=== PATIENT | male | born 1980 | race Hispanic/Latino ===

== ENCOUNTER 2016-08-22 19:42 | Emergency (ER) | payer OTHER ==
[~2016-08-22] VITALS: Ht 157.5 cm; Wt 113.5 kg
[2016-08-22 20:01] VITALS: BP 151/92; PULSE 85; RESP 15; O2SAT 98
--- NOTE | 2016-08-22 21:56 | ED.REPORT ---
HPI-General Illness Date of Service Aug 22, 2016 ED Provider: Merrill SavageO. A 36 year old male with a history of hypothyroid, hyperlipidemia, and diabetes type 2 presents to the ED with intermittent anxiety attacks onset more than six months ago, worsening today. Associated symptoms include blurred vision, shaking , clamminess, inability to concentrate, chest pain, bilateral flank pain, and hypertension (170 systolic). The patient denies hyperglycemia, suicidal ideation , homicidal ideation, or other symptoms. He has been seen and worked-up by his PCP and a thyroid specialist for these symptoms, with no relief. The patient was placed on alprazolam as needed at the beginning of his month and this medication has since ceased to provide relief. His dose of citalopram was increased two months ago. Nursing Notes Stated Complaint: ANXIETY,HIGH BLOOD PRESSURE,CHEST PAIN Chief Complaint: General Complaint Nursing Notes Reviewed: Yes Allergies: Coded Allergies: No Known Allergies (Unverified , 08/22/16) Scheduled PRN Lorazepam (Ativan) 1 Mg Tablet 1 MG PO BID PRN PRN For Anxiety General Time Seen by MD: 21:55 Chief Complaint Other (Anxiety Attacks) Hx Obtained From: Patient Arrived By: Walk-in Sudden in Onset?: Yes Onset Occurred: More than a week ago... (>6 months, worsening) Symptom Duration: Intermittent Location: : Back (Bilateral Flank): Chest Quality: Painful Severity: Current: Moderate Severity: Maximum: Moderate Pertinent Negative: Relieved by nothing Recent Healthcare: Recent doctor visit Similar Sx Previous: Yes Past Medical History Past Medical History Diabetes type 2 Hypothyroid Hyperlipidemia Elevated liver enzymes Past Surgical History None reported Smoking History Unknown if Ever Smoker Social History Formerly drank 750mL a day, but has reduced alcohol intake as of 08/22/16 Other Social History: Good social support Ambulatory Status Independent Review of Systems + Clamminess, inability to concentrate, hypertension (170 systolic) - Hyperglycemia Full Review of Systems Constitutional: Denies: Fever Respiratory: Denies: Non-productive cough, Shortness of breath Cardiovascular: Reports: Chest pain GI: Denies: Diarrhea, Vomiting Male: Reports Flank pain (Bilateral) Neurologic: Reports: Shaking, Vision change (Blurred vision) Psychiatric: Reports: Anxiety, Denies: Homicidal ideation, Suicidal ideation Complete sys rev & neg: except as marked. Physical Exam Vital Signs Vital Signs Date Time Temp Pulse Resp B/P Pulse Ox O2 Delivery O2 Flow Rate FiO2 08/22/16 23:04 76 173/86 99 Room Air 08/22/16 20:01 36.1 85 15 151/92 98 Room Air Initial VS: Reviewed Head / Eyes: Atraumatic, Normocephalic ENT: Conjunctiva normal, No scleral icterus Neck: Supple, Full range of motion Respiratory: Breath sounds normal, Clear to auscultation, No respiratory distress Cardiovascular: Regular rate & rhythm, Heart sounds normal Abdomen / GI: Soft, Non-tender Skin: Warm, Dry, No cyanosis General/Constitutional: Awake, Alert Neurologic: Oriented X3, Speech NL, No motor deficits, No sensory deficits, Reflexes equal bilat No ocular clonus No inducible clonus No cogwheel rigidity Psychiatric: Affect NL, Not suicidal, Not homicidal Abnormal Mood/Affect: Positive: Anxious Re-Eval/Medical Decision Med Decision/Clinical Course Prior clinic records were reviewed. No evidence today of serotonin syndrome or other obvious life-threatening pathology. Will give a dose of Ativan now and prescribe Ativan 1mg when necessary, 5 tablets given. Return and follow-up precautions given Time of Eval: 22:25 Patient Status: Condition improved Re-Evaluation/Progress Note: Discussed with patient diagnosis and plan for discharge. Follow-up and return to the ER instructions given. Patient agrees with plan for care and all questions were addressed. Counseled Regarding: Diagnosis, Need for follow-up, When/why to return to ED Discharge & Departure Primary Impression: Restlessness Disposition: Home Discharge Condition All VS Reviewed: Yes Condition: Improved Additional Instructions: Thank you for entrusting us with your care. Your exam today was reassuring for any serious illness at this time. Please take 1mg Ativan twice daily. Call your primary care provider tomorrow for a follow-up appointment this week. Return to the ER with any new or worsening symptoms. Referrals: Marino Maldonado DO (PCP) Manuel Bunn Attestation Portions of this note were transcribed by Viv Cutler. I, Dr. Jessica, personally performed the history, physical exam, and medical decision-making; I reviewed and confirmed the accuracy of the information in the transcribed note. Signed by: Jessica Singer, 08/22/2016, 23:15 copies to: Marino Maldonado DO; Manuel Bunn Timothy S DO Aug 22, 2016 21:56 VIV CUTLER Aug 22, 2016 22:14
[2016-08-22] MEDS ORDERED: LORazepam 2 mg Tablet PO ONE (22:20)
[2016-08-22] MEDS ORDERED: LORA-303 PO (22:30)
[2016-08-22 23:04] VITALS: BP 173/86; PULSE 76; O2SAT 99
== END 2016-08-22 23:06 | disposition home or self-care (01) ==
LOC: SED 19:42
DX: R45.1 Restlessness and agitation (principal); E11.9 Type 2 diabetes mellitus without complications; E78.5 Hyperlipidemia, unspecified

== ENCOUNTER 2016-08-23 23:40 | Observation (INO) | payer OTHER ==
[~2016-08-23] VITALS: Ht 165.1 cm; Wt 101.3 kg
[~2016-08-23 23:40] MED LIST: LORA-303 PO
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
[2016-08-23] MEDS ORDERED: 0.9% Sodium Chloride 1,000 ML IV ONE (23:58)
[2016-08-24] VITALS (9 sets, daily range): BP systolic 106–139; BP diastolic 61–83; PULSE 70–95; RESP 16–20; O2SAT 92–100
[2016-08-24 00:07] LABS: Mean Corpuscular Hemoglobin 28.5 pg (27.0-35.0); Mean Corpuscular Volume 84.4 fL (81-100)
[2016-08-24 00:08] LABS: BASOPHILS % (AUTO) 0.3 % (0-3); EOSINOPHILS % (AUTO) 0.6 % (0-5); MONOCYTES % (AUTO) 6.7 % (4-12); NEUTROPHILS % (AUTO) 67.5 % (40-74); Platelet Count 354 bil/L (150-400)
[2016-08-24 00:20] LABS: INR 1.05 ratio
[2016-08-24] MEDS: HYDROmorphone 0.5 mg/0.5 mL iSecure Syringe IVPUSH PRN ×2 (00:30→02:30)
[2016-08-24] MEDS ORDERED: TdaP Vaccine 0.5 mL Inj IM ONE (01:15)
[2016-08-24] MEDS ORDERED: Alum-Mag Hydrox-Simeth 30 mL Suspension PO PRN (01:20)
[2016-08-24] MEDS ORDERED: Ondansetron 2 mg/mL 2 mL Inj IVPUSH PRN ×2 (01:20)
[2016-08-24 02:04] LABS: APPEARANCE,URINE HAZY (CLEAR,HAZY); COLOR,URINE STRAW (YELLOW); OCCULT BLOOD,URINE TRACE (NEGATIVE); PH,URINE 7.5 (5.0-8.0); UROBILINOGEN,URINE NORMAL (NORMAL)
[2016-08-24] MEDS: 0.9% Sodium Chloride 1,000 ML IV SCH ×2 (02:54→14:24)
[2016-08-24] MEDS ORDERED: LEVO200T6 PO (04:28)
[2016-08-24] MEDS ORDERED: ROB500 (04:28)
[2016-08-24] MEDS ORDERED: SERT100T9 PO (04:28)
[2016-08-24] MEDS ORDERED: GEMF600T3 (04:28)
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
[2016-08-24 06:40] LABS: BASOPHILS % (AUTO) 0.3 % (0-3); EOSINOPHILS % (AUTO) 0.1 % (0-5); MONOCYTES % (AUTO) 6.1 % (4-12); Mean Corpuscular Hemoglobin 28.5 pg (27.0-35.0); Mean Corpuscular Volume 86.3 fL (81-100); NEUTROPHILS % (AUTO) 83.2 % (40-74); Platelet Count 213 bil/L (150-400)
[2016-08-24] MEDS: HYDROmorphone 1 mg/mL Inj IVPUSH PRN ×4 (08:02→20:07)
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
--- NOTE | 2016-08-24 15:06 | DRSVH ---
PROCEDURE: X-RAY CHEST, TWO VIEWS ([id number]) INDICATIONS: hemopneumothorax TECHNIQUE: 2 views of the chest were acquired. COMPARISON: [facility], CT, CT CHEST ABD PELVIS W CON, 08/24/2016, 0:17. [facility], CR, XR CHEST 1VW (PORTABLE), 08/23/2016, 23:42. FINDINGS: Surgical changes and devices: None. Lungs and pleura: No pleural effusions or pneumothorax. Lungs are abnormal with mild stranding at t he retrocardiac left lung base, possibly related to a pulmonary contusion. Recent chest trauma with nondisplaced multiple left lateral rib fractures as seen by CT scanning from earlier today. Mediastinum: Mediastinal contours are normal. Heart size is normal. Bones and chest wall: No suspicious bony abnormalities. Soft tissues appear unremarkable. IMPRESSION: Mild aspiration or pulmonary contusion posterior deep costophrenic sulcus left lower lobe . No pneumothorax found. The documented rib fractures seen by CT scanning laterally along the left chest from ribs 3 through 7 cannot be identified by plain film at this time. Dictated by: Jr Calvert M.D. on 08/24/2016 at 15:03 Approved by: Jr Calvert M.D. on 08/24/2016 at 15:04
--- NOTE | 2016-08-24 17:17 | NUR ---
Pain Pt's pain has been managed with 1mg IV Dilaudid about every 3-4 hrs. Pain tolerable when pt at rest. With movement his pain jumps up 10/10. Tolerated pain management is 6/10 at rest. Pain is located to generalized left side and back. He has been using incentive spirometer throughout the day. Alert and oriented. Personal CPAP at bedside. Cont. pulse ox at HS. Tele SR 70-90's.
[2016-08-24] MEDS: LORazepam 1 mg Tablet PO PRN (22:22)
[2016-08-25 00:18] VITALS: PULSE 78
[2016-08-25] MEDS: 0.9% Sodium Chloride 1,000 ML IV SCH ×2 (00:29→04:17)
[2016-08-25 00:30] VITALS: BP 149/78; PULSE 68; RESP 20; O2SAT 94
[2016-08-25 04:20] VITALS: BP 143/86; PULSE 73; RESP 18; O2SAT 98
--- NOTE | 2016-08-25 05:56 | NUR ---
Pain/Anxiety Pt reports pain 6-11/07. Dilaudid given with effectiveness noted. Pt started on Oxycodone this am and reports pain relief. Encourage patient to take po pain pill for better/longer control. Pt reported anxiety last night and Md aware. Restarted patient home dose of Lorazepam. 1 mg of Ativan given last night and noted effective for anxiety.
[2016-08-25 07:04] LABS: BASOPHILS % (AUTO) 0.1 % (0-3); EOSINOPHILS % (AUTO) 2.4 % (0-5); MONOCYTES % (AUTO) 11.4 % (4-12); Mean Corpuscular Hemoglobin 28.9 pg (27.0-35.0); Mean Corpuscular Volume 88.6 fL (81-100); NEUTROPHILS % (AUTO) 71.8 % (40-74); Platelet Count 186 bil/L (150-400)
[2016-08-25 07:54] VITALS: PULSE 64
[2016-08-25 08:00] VITALS: BP 133/83; PULSE 68; RESP 16; O2SAT 94
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
--- NOTE | 2016-08-25 14:43 | PCM.DIMED ---
Discharge Instructions Date of Service Aug 25, 2016 Dates of Hospitalization Aug 24, 2016 at 01:22 Discharge Diagnosis Discharge Diagnosis 5 lateral nondisplaced rib fractures involving the third through seventh ribs Medication Instructions Deep breathing important. Continue use of incentive spirometer. Please discontinue smoking. Do not drink and drive. Access available support systems to take action to stop drinking alcohol. Test Results None Diet No restrictions Activity Limited until seen by PCP Call your provider Fever or Chills, Shortness of breath, Chest pain Patient Instructions Please take frequent breaks and avoid strenuous activity for 2-3 weeks. Continue use of incentive spirometer. Follow-up plan Follow up with [facility] in general surgery clinic in 2 weeks. Mid-level Provider (F9): Juanpablo [facility] PA-C Follow-up with Mid-level in: 2 weeks Gurinder Bustos PA-C Aug 25, 2016 14:43
[2016-08-25] MEDS ORDERED: OXYC-466 PO (14:47)
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
[2016-08-25] MEDS: LORazepam 1 mg Tablet PO PRN (16:47)
--- NOTE | 2016-08-25 17:01 | NUR ---
Discharge at 1650 Reviewed DC instructions with patient and . Answered all questions. Enc use of IS Reviewed constipation. Hard script sent in packet with patient for pain medication. Pt taken out in w/ch to home in private vehicle to home with family. All belongings taken.
== END 2016-08-25 16:50 | disposition home or self-care (01) ==
LOC: EDBD 23:40 → SED 23:40 → MOC 08-24 01:22
PROVIDERS: ADMIT Surgery; ATTEND Surgery
DX: S27.2XXA Traumatic hemopneumothorax, initial encounter (principal); S22.42XA Multiple fractures of ribs, left side, initial encounter for closed fracture; V48.0XXA Car driver injured in noncollision transport accident in nontraffic accident, initial encounter; Y92.414 Local residential or business street as the place of occurrence of the external cause; Y93.89 Activity, other specified; E11.9 Type 2 diabetes mellitus without complications; E03.9 Hypothyroidism, unspecified; E78.5 Hyperlipidemia, unspecified; R74.8 Abnormal levels of other serum enzymes; F41.9 Anxiety disorder, unspecified; F17.210 Nicotine dependence, cigarettes, uncomplicated; Z23 Encounter for immunization
CPT/HCPCS: 36415; 70450; 71010; 71020; 71260; 72125; 74177; 80053; 81000; 81002; 85014; 85018; 85025; 85610; 85730; 86850; 90471; 90715; 96361; 96374; 96375; 96376; 99291; G0378; G0390; G0480; J1170; J2270; J7030; Q9967